=== PATIENT | female | born 1960 ===

== ENCOUNTER 2021-02-24 07:53 | Day surgery (SDC) | payer OTHER ==
[~2021-02-24 07:53] MED LIST: NORVASC5 MG PO; SYNTHROID175 MCG PO
== END 2021-02-24 14:00 | disposition home or self-care (01) ==
LOC: CIR.AMB 07:53
PROVIDERS: ATTEND Orthopaedic Surgery
DX: S52.122A Displaced fracture of head of left radius, initial encounter for closed fracture (principal); S52.132A Displaced fracture of neck of left radius, initial encounter for closed fracture; S53.32XA Traumatic rupture of left ulnar collateral ligament, initial encounter; Z20.822 Contact with and (suspected) exposure to COVID-19
CPT/HCPCS: 24363; 24343; C1776